=== PATIENT | female | born 1975 | race Caucasian/White ===

== ENCOUNTER → 2024-12-19 08:56 | Outpatient (REF) | payer BC, SELFPAY | LOC: HWWDC 08:56 | PROVIDERS: ATTENDING PHYSICIAN Student in an Organized Health Care Education/Training Program | DX: Z12.31 Encounter for screening mammogram for malignant neoplasm of breast (principal) | CPT/HCPCS: 77063; 77067 ==

== ENCOUNTER → 2025-01-20 12:34 | Outpatient (REF) | payer BC, SELFPAY | LOC: HWRAD 12:34 | PROVIDERS: ATTENDING PHYSICIAN Podiatrist Foot & Ankle Surgery; FAMILY PHYSICIAN Student in an Organized Health Care Education/Training Program | DX: M77.42 Metatarsalgia, left foot (principal) | CPT/HCPCS: 73630 ==